=== PATIENT | male | born 1945 ===

== ENCOUNTER 2017-01-12 11:00 | Inpatient (IN) | payer MEDICARE, BC ==
--- NOTE | 2017-04-09 23:16 | HP ---
HISTORY AND PHYSICAL: DATE OF ADMISSION/SURGERY: 04/15/17. DATE OF OFFICE VISIT: 04/09/17. SURGEON: Leann Sprague MD.* (DICTATED BY DENISE IBARRA) PROCEDURE: Right total knee arthroplasty. CHIEF COMPLAINT: Right knee pain. HISTORY OF PRESENT ILLNESS: Mr. Marie is a 71-year-old gentleman with complaints of right knee pain secondary to endstage osteoarthritis. He has failed conservative management and elected to proceed with a right total knee arthroplasty, which is scheduled for 04/15/[address] Sprague. PAST MEDICAL HISTORY: Stage IV CLL, hypertension, sleep apnea, thrombocytopenia , hypothyroidism, hiatal hernia. PAST SURGICAL HISTORY: Bone marrow biopsy x2, lymph node biopsy. CURRENT MEDICATIONS: 1. Levothyroxine 200 mcg daily 2. Metoprolol 25 mg two tabs daily. ALLERGIES: None. FAMILY HISTORY: Cancer and heart disease. SOCIAL HISTORY: He is a 71-year-old gentleman, lives with his . He does not smoke, use drugs or alcohol. REVIEW OF SYSTEMS: A complete 14-point review of systems was reviewed with the patient. It is positive for sleep apnea, GERD, hypothyroidism, and thrombocytopenia. He denies a history of hepatitis C, HIV, DVT or anesthesia problems. PHYSICAL EXAMINATION GENERAL: He is well developed, well nourished, in no acute distress. VITAL SIGNS: He stands 6 feet tall, weighs 240 pounds. Her blood pressure is 140/90. Her heart rate is 80. HEENT: Normocephalic, atraumatic. NECK: Supple. No palpable lymph nodes. PULMONARY: The lungs are clear to auscultation bilaterally. CARDIO: Regular rate and rhythm. Strong S1, S2. ABDOMEN: Soft, nontender, nondistended. NEUROLOGIC: He is alert and oriented x3. Cranial nerves II through XII are intact. MUSCULOSKELETAL: Right lower extremity, the skin is intact. There are no open wounds or abrasions. He has mild effusion, tenderness over the medial and lateral joint line. No varus or valgus instability, 5/5 lower extremity strength. 2+ dorsalis pedis pulses and intact sensation. ASSESSMENT AND PLAN: Mr. Marie is a 71-year-old gentleman with complaints of right knee pain, secondary to advanced osteoarthritis. He has failed conservative management and elected to proceed with a right total knee arthroplasty which is scheduled on 04/15/[address] Sprague discussed the risks and benefits of the surgery at today's visit and all of his questions were answered. Percocet and Colace were sent to his pharmacy for postoperative pain control. He would prefer aspirin for postoperative DVT prophylaxis and that was sent to his pharmacy as well. He will follow up with Dr. Sprague in 2 weeks after the surgery. DENISE IBARRA [id number]/[facility] #: [id number] MTDD
[2017-04-14] MEDS ORDERED: Buffered Lidocaine 0.9% SYRIN* 5 ML/SYR SYRINGE INTRADERM ONE (10:24)
[2017-04-15] MEDS ORDERED: DiMENhydriNATE IV* 50 MG/ML VIAL IV PUSH PRN (05:58)
[2017-04-15] MEDS ORDERED: PROCHLORPERAZINE INJ 5 MG/ML 2 ML VIAL IV PRN (05:58)
[2017-04-15] MEDS ORDERED: Morphine INJ* 2 MG/ML 1 ML CARPUJECT IV PRN (05:58)
[2017-04-15] MEDS ORDERED: Naloxone* 0.4 MG/ML 1 ML VIAL IV PRN (05:58)
[2017-04-15] MEDS ORDERED: Scopolamine 1.5 mg* PATCH TRANSDERM PRN (05:58)
[2017-04-15] MEDS ORDERED: oxyCODONE/Acetamin 5/325 MG* TAB PO PRN ×2 (05:58→09:59)
[2017-04-15] MEDS ORDERED: Famotidine IV* 10 MG/ML 2 ML (20 mg) IV ONE (06:00)
[2017-04-15] MEDS ORDERED: Buffered Lidocaine 0.9% SYRIN* 5 ML/SYR SYRINGE ONE (06:56)
[2017-04-15] MEDS ORDERED: Famotidine IV* 10 MG/ML 2 ML (20 mg) ONE (06:56)
[2017-04-15] MEDS ORDERED: ceFAZolin 2 GM PREMIX (*) 2 GM/50 ML BAG IVPB ONE (06:56)
[2017-04-15] MEDS ORDERED: fentaNYL* 50 MCG/ML 2 ML VIAL (100 MCG VIAL) ONE ×3 (07:42→12:14)
[2017-04-15] MEDS ORDERED: Atracurium* 10 MG/ML 10 ML VIAL ONE (07:42)
[2017-04-15] MEDS ORDERED: KETAMINE HCL* 50 MG/ML 10 ML VIAL ONE (07:42)
[2017-04-15] MEDS ORDERED: Midazolam* 1 MG/ML 10 ML VIAL (10 MG) ONE (07:42)
[2017-04-15] MEDS ORDERED: Bupivacaine 0.25% SDV* 30 ML ONE (09:11)
[2017-04-15] MEDS ORDERED: Phenylephrine INJ* 10 MG/ML 1 ML VIAL (10 MG) ONE (09:11)
[2017-04-15] MEDS ORDERED: Ondansetron INJ* 2 MG/ML VIAL ONE (09:11)
[2017-04-15] MEDS ORDERED: Propofol* 10 MG/ML 20 ML BTL IV PUSH ONE (09:11)
[2017-04-15] MEDS ORDERED: Metoprolol Tartrate IV* 1 MG/ML 5 ML VIAL ONE (09:11)
[2017-04-15] MEDS ORDERED: Ketorolac INJ* 30 MG/ML 1 ML VIAL ONE (09:11)
[2017-04-15] MEDS ORDERED: Dexamethasone IV* 4 MG/ML 1 ML (4 MG) ONE (09:11)
[2017-04-15] MEDS ORDERED: Lidocaine 2% PF * 5 ML VIAL ONE (09:11)
[2017-04-15] MEDS ORDERED: Succinylcholine* 20 MG/ML 10 ML VIAL ONE (09:11)
[2017-04-15] MEDS ORDERED: EPHEDrine (Pressors)* 50 MG/ML VIAL ONE (09:16)
[2017-04-15] MEDS ORDERED: Morphine INJ* 10 MG/ML 1 ML CARPUJECT ONE (09:41)
[2017-04-15] MEDS ORDERED: hydrALAZINE IV* 20 MG/ML VIAL ONE (09:41)
[2017-04-15] MEDS ORDERED: diPHENhydraMINE IV* 50 MG/ML 1 ml VIAL (BENADRYL) IV PRN (09:59)
[2017-04-15] MEDS ORDERED: Ondansetron INJ* 2 MG/ML VIAL IV PRN (09:59)
[2017-04-15] MEDS ORDERED: Magnesium Hydroxide LIQ* 30 ML UDC PO PRN (09:59)
[2017-04-15] MEDS ORDERED: Acetaminophen TAB* 325 MG PO PRN (09:59)
[2017-04-15] MEDS ORDERED: Enoxaparin(*) 30 MG/0.3 ML SYR SUBCUT SCH (10:00)
[2017-04-15 11:16] LABS: Hematocrit 45 % (42-52); Hemoglobin 14.3 g/dl (14.0-18.0); Mean Corpuscular HGB Conc 32 g/dl (31-36); Mean Corpuscular Hemoglobin 26 pg (27-31); Mean Corpuscular Volume 81 fL (80-94); Mean Platelet Volume 10 um3 (7.4-10.4); Platelet Count 80 10^3/ul (150-450); Red Blood Count 5.52 10^6/ul (4.0-5.4); Red Cell Distribution Width 16 % (10.5-15); White Blood Count 57.9 10^3/ul (3.5-10.8)
--- NOTE | 2017-04-15 11:31 | RAD ---
INDICATION: Right total knee replacement COMPARISON: April 09, 2017 TECHNIQUE: 2 portable views were obtained. FINDINGS: There is right knee arthroplasty. The prosthetic components appear well seated. There is no overlying cooling jacket. IMPRESSION: POSTOPERATIVE RIGHT KNEE ARTHROPLASTY
[2017-04-15] MEDS ORDERED: oxyCODONE/Acetamin 5/325 MG* TAB ONE (12:10)
[2017-04-15] MEDS: fentaNYL* 50 MCG/ML 2 ML VIAL (100 MCG VIAL) IV PRN ×2 (12:15→12:23)
[2017-04-15] MEDS ORDERED: amLODIPine TAB* 5 MG PO ONE (14:37)
[2017-04-15] MEDS: oxyCODONE TAB* 5 MG TAB PO PRN ×2 (14:39→23:35)
[2017-04-15] MEDS: ceFAZolin 1 GM in Dextrose (*) 1 GM/50 ML BAG IVPB SCH (16:08)
[2017-04-15] MEDS ORDERED: Warfarin TAB(*) 6 MG PO ONE (17:00)
[2017-04-15] MEDS ORDERED: Warfarin TAB(*) 6 MG PO SCH (17:00)
[2017-04-15] MEDS: Metoprolol Tartrate TAB* 25 MG PO SCH (19:34)
[2017-04-15] MEDS: Docusate CAP* 100 MG PO SCH (19:34)
[2017-04-15] MEDS: Magnesium Hydroxide LIQ* 30 ML UDC PO SCH (19:34)
[2017-04-15] MEDS: oxyCODONE/Acetamin 5/325 MG* TAB PO PRN (21:29)
--- NOTE | 2017-04-15 23:05 | CONS ---
CC: "Dr. Esquivel" [facility]; Dr. Sprague * CONSULTATION REPORT: DATE OF ADMISSION: 04/15/17 DATE OF CONSULTATION: 04/15/17 PRIMARY CARE PROVIDER: "Dr. Esquivel" from [facility]. ATTENDING PHYSICIAN WHILE IN THE HOSPITAL: Munir Cote MD (report dictated by Nilton Nieto NP). REQUESTING PHYSICIAN IN CONSULT: Dr. Sprague. REASON FOR MEDICAL CONSULTATION: Evaluation and medical management of comorbid medical conditions. HISTORY OF PRESENT ILLNESS: I will refer you to Dr. Sprague's H and P for further details. In short, Mr. Marie is a 61-year-old male patient. He has a history of CLL, thrombocytopenia. He just did a 4-week course of Rituximab to try to increase his platelets, he finished just on 03/18/17. He also has a history of hypertension, JOHNIE, not compliant with the CPAP. He has a history of hiatal hernia, hypothyroidism, GERD, hyperlipidemia, and osteoarthritis. He was evaluated in the postoperative setting. He states that he is feeling well. He denies having any chest pain or shortness of breath. He is having some discomfort in his knee. He denies having any abdominal discomfort. Denies having any nausea, vomiting. He does not feel lightheaded. He does not feel like he is going to faint, states he is feeling pretty well. His pain is well controlled. Because of his medical complexity, we were asked to evaluate in consult. PAST MEDICAL HISTORY: Significant for: 1. CLL. 2. Hypertension. 3. JOHNIE. 4. Thrombocytopenia. 5. Hypothyroidism. 6. Hiatal hernia. 7. GERD. 8. Hyperlipidemia. 9. Osteoarthritis. PAST SURGICAL HISTORY: He has had a bone marrow biopsy and he has had lymph node biopsy, and this is his first major surgery of right total knee replacement. MEDICATIONS: His home medications according to the list provided include: 1. Metoprolol 25 mg p.o. b.i.d. 2. Synthroid 200 mcg p.o. daily. ALLERGIES: To medications include, no known drug allergies. FAMILY HISTORY: His mother had a history of AK. Father had cancer. SOCIAL HISTORY: He does not smoke, does not drink. Surrogate decision maker is his , Anne-Marie. REVIEW OF SYSTEMS: There is no documented fever. He denied having any significant weight change. There was no double vision. There is no ear discharge. He denies having any rhinorrhea. There is no sore throat. There is no thyroid enlargement. Denies having any chest pain. There is no orthopnea. He denies having any nocturnal dyspnea. There is no abdominal pain. Denies having any nausea. No vomiting. Denied any dysuria or any frequency. No loss of consciousness. Review of 14 systems was completed, all others negative. PHYSICAL EXAMINATION: Vital Signs: Blood pressure 172/78, pulse 72, respirations 18, O2 saturation 97%, temperature 98.2. General: At this time, Mr. Marie is a 71-year-old male patient. He is sitting in the PACU bed. He does not appear to be in acute distress. HEENT: Head atraumatic. Normocephalic. Eyes: EOMs intact. Sclerae anicteric, not pale. Neck was supple. Throat: Oral mucosa appears to be moist. No oropharyngeal erythema. Heart: Sounds S1, S2. Regular rate and rhythm. No murmurs, rubs, or gallops. Lungs: Clear to auscultation. No wheezes, rales or rhonchi. Abdomen: Soft , flat, nontender. Bowel sounds were hypoactive. Extremities: Pulses were 2+ through-out. He has limited range of motion to that right lower extremity as this is the operative leg. He had 5/5 strength. Neurologically, the patient is awake, alert, and oriented x3. Tongue midline. Print Developer were equal. No gross focal deficits. Skin: intact. DIAGNOSTIC STUDIES/LABORATORY DATA: Today, he had a WBC of 57.7. He had a RBC of 5.52, hemoglobin 14.3, hematocrit of 45, platelet count was 80,000. He did have a preop EKG. The preop chest x-ray from 6 days ago shows hyperinflated lung field, no active disease. No definite pneumonia. He had an EKG obtained preop same day, normal sinus rhythm, rate of 69. No ST elevations or T wave inversions. Old medical records were reviewed. ASSESSMENT AND PLAN: Mr. Marie is a 71-year-old male patient with a complex medical history coming into our orthopedic services today for an elective total knee replacement, we were asked to evaluate in consult. Recommendations at this point are: 1. Chronic lymphocytic leukemia. I defer the management to his primary oncologist, Dr. Velásquez over in [place], but at this point we will continue to follow him closely. If we need any further assistance, we could certainly touch base with our hematology/oncology group. At this point, he appears to be stable. 2. Status post right total knee replacement. I will defer the management to Dr. Sprague and her team. 3. Thrombocytopenia. Dr. Velásquez did recommend in his notes to continue with standard anticoagulation postoperatively until platelets are greater than 50,000 , so we will monitor the platelet count closely, if they do fall we will need to consider other treatment modalities, but at this point, again I would recommend enoxaparin, which has been ordered and we will follow platelet count closely. 4. Hypertension. Continue meds as prescribed. 5. Obstructive sleep apnea. He is noncompliant with his mask. I did order a 24- hour pulse oximetry. 6. Hypothyroidism. Continue Synthroid. 7. History of hiatal hernia with gastroesophageal reflux disease. He is in followup with his primary. He has recently stopped his PPI therapy, which was probably going to be started postoperatively in the outpatient setting. 8. Hyperlipidemia, follow up with primary. 9. Arthritis. We will continue with his current medical regimen. 10. DVT prophylaxis. Again, if platelet counts remain greater than 50,000 according to his records from Dr. Velásquez, he recommended continuing with the standard anticoagulation, which has been ordered already by Orthopedics. 11. Fluid, electrolytes, nutrition: He can have a regular diet. 12. Code status: Full code. TIME SPENT: Time spent on consult was 60 minutes, greater than half the time spent [id number] with the patient, obtaining my history and physical, the other half time was spent going over the plan of care with the patient and implementing plan of care. I did discuss the plan of care with my attending, Dr. Cote; he is in agreement. NILTON NIETO NP [id number]/[facility] #: [id number] MTDD
[2017-04-16] MEDS: ceFAZolin 1 GM in Dextrose (*) 1 GM/50 ML BAG IVPB SCH ×2 (00:24→08:10)
--- NOTE | 2017-04-16 01:56 | OP ---
DATE OF OPERATION: 04/15/17 - ROOM #342 DATE OF : 49 SURGEON: Leann Sprague MD POLLUTION CONTROL CHEMIST: DENISE Macdonald. Ms. Garcias did help throughout the procedure with preparation of the leg, wound retraction, manipulation of the knee, and wound closure. ANESTHESIOLOGIST: Dr. Suggs. ANESTHESIA: General with adductor nerve block. PRE-OP DIAGNOSIS: Severe end-stage arthritis of the right knee joint. POST-OP DIAGNOSIS: Severe end-stage arthritis of the right knee joint. OPERATIVE PROCEDURE: Right total knee arthroplasty. TOURNIQUET TIME: 48 minutes. COMPLICATIONS: None. ESTIMATED BLOOD LOSS: 200 cc. SPECIMENS: Bone and cartilage sent from the right knee joint to Pathology. HARDWARE USED: This is a cemented [employer]ill [employer] total knee arthroplasty hardware. Two packages of Simplex bone cement were used. For the femur, a size 6 right Legion posterior stabilized femoral component. For the tibia, a size 6 right Chrissy II tibial baseplate. For the insert, an 11-mm posterior stabilized articular insert. For the patella, a 35-mm 3-peg all poly patella. BRIEF HISTORY/INDICATIONS: Mr. Marie is a 71-year-old gentleman with years of increasingly severe right knee pain. The patient failed conservative treatment with the anti-inflammatories, pain medications, intraarticular injections, and physical therapy. Radiographs showed severe end-stage arthritis. Due to continued pain and decreased quality of life, the patient elected to proceed with right total knee arthroplasty. Informed consent was obtained from the patient. He understood the risks of the procedure, included but were not limited to bleeding, infection, damage to nearby structures, continued pain, need for further surgery, intraoperative fracture, nerve palsy, hardware failure or loosening, knee stiffness, loss of motion, stroke, heart attack, blood clot, and . He wished to proceed. INTRAOPERATIVE FINDINGS: Intraoperatively, the patient was noted to have severe loss of cartilage in the lateral and patellofemoral compartments. DESCRIPTION OF PROCEDURE: Mr. Marie was identified in the preanesthesia unit. His right lower extremity was marked as the correct operative site. Informed consent was signed and placed in the chart. The patient was taken to the operating room and placed under general anesthesia with an adductor nerve block. A Avitia catheter was placed. Tourniquet was placed on the right thigh. The right lower extremity was prepped and draped in the usual sterile fashion. Preop time-out was made to correctly identify the patient, side, and site. Appropriate perioperative antibiotics were given within 1 hour of incision. Tourniquet was inflated and total tourniquet time for this procedure was 48 minutes. A 12-cm midline incision was made with a 10 blade and carried down to the extensor mechanism. New 10 blade was used to make a standard medial parapatellar arthrotomy. The patella was subluxed laterally. Electrocautery was used to subperiosteally elevate soft tissue off the superomedial tibia to the mid sagittal plane. The knee was flexed up. Anterior horn of the lateral meniscus and the ACL were sharply released. A drill was used to enter the distal femur. Intramedullary distal femoral cutting guide was pinned on the distal femur. Oscillating saw was used to make the appropriate distal femoral cut. There was lateral femoral condylar hypoplasia, this was noted and accounted for. Next, the external rotation guide was pinned on the distal femur. The distal femur was sized to a size 6. Size 6 multi-cutting jig was pinned on the distal femur. The oscillating saw was used to make the appropriate 4 chamfer cuts. The PCL was completely released with electrocautery. The tibia was subluxed anteriorly. Extramedullary tibial cutting guide was pinned on the proximal tibia. Oscillating saw was used to make the proximal tibial cut perpendicular to the mechanical axis of the tibia. The bone was carefully removed. The knee was brought out into full extension. Medial and lateral ligaments were well balanced. The spacer block had good fit with the knee in full extension. Flexion and extension gaps were well balanced. The knee was flexed up. Lamina student liaison officer was placed both medially and laterally. Any remaining meniscus was carefully removed using electrocautery. Curved osteotome was used to remove posterior osteophytes. Tibial tray and drop raquel were placed and once again confirmed a satisfactory tibial cut. A right size 6 femoral trial was impacted on to the distal femur. This had excellent fit. The box for the posterior stabilized implant was prepared using a reamer and box cut osteotome. Size 6 tibial tray trial and an 11-mm insert trial were placed and the knee was taken through a range of motion. The knee had full extension to 130 degrees of flexion with good patellofemoral tracking. The patella was everted. A 9-mm of patellar bone and cartilage was carefully removed using an oscillating saw. The patella was sized to a size 35. Three peg holes were drilled through the size 35 guide. A trial 35 patella was placed and the knee was taken through a range of motion. There was satisfactory patellofemoral tracking. All trials were carefully removed. The tibia was subluxed anteriorly and sized to a size 6. Proximal tibia was prepared using a size-6 keel punch. All bony cut surfaces were copiously irrigated with sterile saline and dried. Final implants were cemented into place, starting with the tibia, followed by the femur, and last the patella. An 11-mm insert trial was placed while the knee was brought out into full extension. Tourniquet was turned down at 48 minutes. The knee was copiously irrigated with sterile saline. Electrocautery was used to obtain meticulous hemostasis. Once the cement had fully cured, the insert trial was removed. Any excess cement was removed from around the capsule and hardware. Final insert chosen was an 11-mm posterior stabilized articular insert size 5/6. This was locked into position on the tibial tray. Stability of the insert was checked and rechecked and noted to be stable. The extensor mechanism was closed using interrupted #1 Vicryls. The rest of the incision was closed in a layered fashion using 0 and 2-0 Vicryls. Skin was closed using running 3-0 nylon suture. Sterile Xeroform, 4x4s, and Webril were used to cover the incision. Onofre wrap and cold packs were placed over this. The patient's anesthesia was reversed without difficulty. He was taken to the PACU in stable condition. Intended weightbearing will be weightbearing as tolerated. Intended DVT prophylaxis will be Coumadin with a Lovenox bridge. [id number]/[facility] #: [id number] ELMA
[2017-04-16] MEDS: oxyCODONE/Acetamin 5/325 MG* TAB PO PRN ×2 (06:14→12:03)
[2017-04-16 06:28] LABS: EGFR Non-African American 84.8 (>60)
[2017-04-16 06:41] LABS: Hematocrit 42 % (42-52); Mean Corpuscular HGB Conc 31 g/dl (31-36); Mean Corpuscular Hemoglobin 26 pg (27-31); Mean Corpuscular Volume 82 fL (80-94); Mean Platelet Volume 10 um3 (7.4-10.4); Platelet Count 96 10^3/ul (150-450); Red Blood Count 5.08 10^6/ul (4.0-5.4); Red Cell Distribution Width 16 % (10.5-15); White Blood Count 70.9 10^3/ul (3.5-10.8)
[2017-04-16 06:42] LABS: ABS Basophils 0.2 10^3/ul (0-0.2); ABS Eosinophils 0.2 10^3/ul (0-0.6); ABS Lymphocytes 55.8 10^3/ul (1.0-4.8); ABS Monocytes 1.6 10^3/ul (0-0.8); ABS Neutrophils 13.1 10^3/ul (1.5-7.7); ABS Nucleated RBC 0 10^3/ul; Eosinophil % 0.3 % (0-6); Lymphocyte % 78.7 % (25-47); Nucleated Red Blood Cells % 0.1
[2017-04-16 06:43] LABS: INR 1.04 (0.77-1.02)
[2017-04-16 07:14] LABS: Monocytes % 0 % (0-13)
[2017-04-16] MEDS: Levothyroxine TAB* 100 MCG TAB PO SCH (07:34)
[2017-04-16] MEDS: oxyCODONE TAB* 5 MG TAB PO PRN ×2 (08:10→20:19)
[2017-04-16] MEDS ORDERED: Famotidine TAB* 20 MG ONE (08:41)
[2017-04-16] MEDS: Vitamin THERAPEUTIC TAB PO SCH (08:42)
[2017-04-16] MEDS: amLODIPine TAB* 5 MG PO SCH (08:42)
[2017-04-16] MEDS: Metoprolol Tartrate TAB* 25 MG PO SCH ×2 (08:42→20:20)
--- NOTE | 2017-04-16 08:42 | PN ---
Progress Note - Progress Note Date of Service: 04/16/17 SOAP: Subjective: 71 y/o male s/p R TKA 04/[address] Sprague, uncomplicated. Patient states pain better controlled, no questions re: surgery. VSS afebrile overnight. Objective: General- Well appearing, NAD, OA, sitting in chair comfortably MSK- Dressing intact, no draiange noted, + DF/PF b/l, SITLT b/l grossly, PT 2+ R Vital Signs Temp 98.0 F 04/16/17 07:32 Pulse 80 04/16/17 07:32 Resp 18 04/16/17 12:03 BP 151/70 04/16/17 07:32 Pulse Ox 95 04/16/17 08:00 Intake & Output 04/15/17 04/16/17 04/16/17 18:59 06:59 18:59 Intake Total 2530 1929 Output Total 1150 1600 0 Balance 1380 329 0 Intake: IV Fluids 2300 989 LR 2300 989 Oral 230 940 Output: Urine 200 0 Avitia 850 1400 Estimated Blood Loss 300 Assessment: STable 71 y/o male s/p R TKA 04/[address] Sprague, uncomplicated. Plan: - DVT prophylaxis- h/o CLL, plts 96 today, continue anticoag. lovenox in house , ASA 325 BID at home - multiple medical co-morbidities, hosp consulted/ following - Continue PT - POssible D/C tomorrow, Patient declined home nursing/ PT. Active Medications Generic Name Dose Route Start Last Admin Trade Name Freq PRN Reason Stop Dose Admin Acetaminophen 650 mg 04/15/17 09:59 Tylenol Tab* PO Q4H PRN PAIN OR TEMPERATURE Amlodipine Besylate 10 mg 04/16/17 09:00 04/16/17 08:42 Norvasc Tab* PO 10 mg DAILY YUDITH Administration Diphenhydramine HCl 25 mg 04/15/17 09:59 Benadryl Iv* IV Q6H PRN itching Docusate Sodium 100 mg 04/15/17 21:00 04/16/17 08:43 Colace Cap* PO 100 mg BID YUDITH Administration Enoxaparin Sodium 30 mg 04/16/17 12:00 04/16/17 12:04 Lovenox(*) SUBCUT 30 mg Q24H YUDITH Administration Famotidine 20 mg 04/16/17 09:00 04/16/17 08:45 Pepcid Tab* PO Not Given BID YUDITH Lactated Ringer's 1,000 mls @ 75 mls/hr 04/15/17 10:00 04/15/17 13:36 Lactated Ringers 1000 Ml Bag* IV 75 mls/hr PER RATE YUDITH Administration Levothyroxine Sodium 200 mcg 04/16/17 09:00 04/16/17 07:34 Synthroid Tab* PO 200 mcg DAILY YUDITH Administration Magnesium Hydroxide 30 ml 04/15/17 21:00 04/16/17 08:43 Milk Of Magnesia Liq* PO 30 ml BID YUDITH Administration Magnesium Hydroxide 30 ml 04/15/17 09:59 Milk Of Magnesia Liq* PO Q6H PRN constipation Metoprolol Tartrate 25 mg 04/15/17 21:00 04/16/17 08:42 Lopressor Tab* PO 25 mg BID YUDITH Administration Multivitamins 1 tab 04/16/17 09:00 04/16/17 08:42 Theragran Tab* PO 1 tab DAILY YUDITH Administration Ondansetron HCl 4 mg 04/15/17 09:59 04/16/17 02:44 Zofran Inj* IV 4 mg Q6H PRN Administration nausea Oxycodone HCl 10 mg 04/15/17 09:59 04/16/17 08:10 Roxycodone Tab* PO 10 mg Q4H PRN Administration PAIN - SEVERE Oxycodone/Acetaminophen 2 tab 04/15/17 09:59 04/16/17 12:03 Percocet 5/325 Tab* PO 2 tab Q4H PRN Administration PAIN Oxycodone/Acetaminophen 1 tab 04/15/17 09:59 Percocet 5/325 Tab* PO Q4H PRN PAIN Pharmacy Profile Note 1 note 04/18/17 05:59 Scopolamine Patch Remove* PATCH OFF 04/18/17 06:00 Q72H ONE
[2017-04-16] MEDS: Magnesium Hydroxide LIQ* 30 ML UDC PO SCH ×2 (08:43→20:20)
[2017-04-16] MEDS: Docusate CAP* 100 MG PO SCH ×2 (08:43→20:20)
[2017-04-16] MEDS: Famotidine TAB* 20 MG PO SCH ×2 (08:45→20:20)
[2017-04-16] MEDS: Enoxaparin(*) 30 MG/0.3 ML SYR SUBCUT SCH (12:04)
--- NOTE | 2017-04-16 15:58 | PN ---
Subjective Date of Service: 04/16/17 Interval History: Pain control OK. Walked a little today. He anticipates going home tomorrow. Objective Active Medications: Acetaminophen (Tylenol Tab*) 650 mg PO Q4H PRN PRN Reason: PAIN OR TEMPERATURE Amlodipine Besylate (Norvasc Tab*) 10 mg PO DAILY [facility] Last Admin: 04/16/17 08:42 Dose: 10 mg Diphenhydramine HCl (Benadryl Iv*) 25 mg IV Q6H PRN PRN Reason: itching Docusate Sodium (Colace Cap*) 100 mg PO BID [facility] Last Admin: 04/16/17 08:43 Dose: 100 mg Enoxaparin Sodium (Lovenox(*)) 30 mg SUBCUT Q24H [facility] Last Admin: 04/16/17 12:04 Dose: 30 mg Famotidine (Pepcid Tab*) 20 mg PO BID [facility] Last Admin: 04/16/17 08:45 Dose: Not Given Lactated Ringer's (Lactated Ringers 1000 Ml Bag*) 1,000 mls @ 75 mls/hr IV PER RATE [facility] Last Admin: 04/15/17 13:36 Dose: 75 mls/hr Levothyroxine Sodium (Synthroid Tab*) 200 mcg PO DAILY [facility] Last Admin: 04/16/17 07:34 Dose: 200 mcg Magnesium Hydroxide (Milk Of Magnesia Liq*) 30 ml PO BID [facility] Last Admin: 04/16/17 08:43 Dose: 30 ml Magnesium Hydroxide (Milk Of Magnesia Liq*) 30 ml PO Q6H PRN PRN Reason: constipation Metoprolol Tartrate (Lopressor Tab*) 25 mg PO BID [facility] Last Admin: 04/16/17 08:42 Dose: 25 mg Multivitamins (Theragran Tab*) 1 tab PO DAILY [facility] Last Admin: 04/16/17 08:42 Dose: 1 tab Ondansetron HCl (Zofran Inj*) 4 mg IV Q6H PRN PRN Reason: nausea Last Admin: 04/16/17 02:44 Dose: 4 mg Oxycodone HCl (Roxycodone Tab*) 10 mg PO Q4H PRN PRN Reason: PAIN - SEVERE Last Admin: 04/16/17 08:10 Dose: 10 mg Oxycodone/Acetaminophen (Percocet 5/325 Tab*) 2 tab PO Q4H PRN PRN Reason: PAIN Last Admin: 04/16/17 12:03 Dose: 2 tab Oxycodone/Acetaminophen (Percocet 5/325 Tab*) 1 tab PO Q4H PRN PRN Reason: PAIN Pharmacy Profile Note (Scopolamine Patch Remove*) 1 note PATCH OFF Q72H ONE Stop: 04/18/17 06:00 Vital Signs - 8 hr 04/16/17 04/16/17 04/16/17 08:00 08:10 10:00 Temperature Pulse Rate Respiratory 18 18 18 Rate Blood Pressure (mmHg) O2 Sat by Pulse 95 Oximetry 04/16/17 04/16/17 04/16/17 10:07 11:26 12:00 Temperature 98.1 F Pulse Rate 68 Respiratory 18 18 18 Rate Blood Pressure 157/73 (mmHg) O2 Sat by Pulse 99 Oximetry 04/16/17 04/16/17 04/16/17 12:03 14:00 14:10 Temperature Pulse Rate Respiratory 18 18 18 Rate Blood Pressure (mmHg) O2 Sat by Pulse Oximetry Oxygen Devices in Use Now: None Appearance: Alert, partly up in bed. In good spirits. Looks comfortable. Eyes: No Scleral Icterus Extremities: No Edema, No Clubbing, Cyanosis, - - R knee in immoblizer. Skin: No Rash or Ulcers, No Nodules or Sclerosis, - Neurological: Alert and Oriented x 3, NL Sensation Result Diagrams: 04/16/17 05:51 04/16/17 05:51 Assess/Plan/Problems-Billing Assessment: - Patient Problems (1) HTN (hypertension) Current Visit: Yes Status: Acute Code(s): I10 - ESSENTIAL (PRIMARY) HYPERTENSION SNOMED Code(s): 02828872 Comment: Amlodipine has been added to his other meds, would continue as outpt until fup with his PCP. (2) CLL (chronic lymphocytic leukemia) Current Visit: Yes Status: Acute Code(s): C91.10 - CHRONIC LYMPHOCYTIC LEUK OF B-CELL TYPE NOT ACHIEVE REMIS SNOMED Code(s): 12306732 Comment: Followed by supervisor water treatment plant in [place]. Stable, no intervention needed at this time. (3) Hypothyroid Current Visit: Yes Status: Acute Code(s): E03.9 - HYPOTHYROIDISM, UNSPECIFIED SNOMED Code(s): 29022403 Comment: Add on TSH requested. (4) S/P total knee arthroplasty Current Visit: Yes Status: Acute Code(s): Z96.659 - PRESENCE OF UNSPECIFIED ARTIFICIAL KNEE JOINT SNOMED Code(s): 0617767951889 Comment: Surgery 04/15/17. Anticoagulation per Dr. Sprague.
[2017-04-16] MEDS ORDERED: Warfarin TAB(*) 4 MG PO ONE (17:00)
[2017-04-17] MEDS: oxyCODONE TAB* 5 MG TAB PO PRN (04:20)
[2017-04-17 05:45] LABS: Hematocrit 39 % (42-52); Hemoglobin 12.4 g/dl (14.0-18.0); Mean Corpuscular HGB Conc 32 g/dl (31-36); Mean Corpuscular Hemoglobin 26 pg (27-31); Mean Corpuscular Volume 80 fL (80-94); Mean Platelet Volume 9 um3 (7.4-10.4); Platelet Count 80 10^3/ul (150-450); Red Blood Count 4.81 10^6/ul (4.0-5.4); Red Cell Distribution Width 16 % (10.5-15); White Blood Count 47.2 10^3/ul (3.5-10.8)
[2017-04-17] MEDS: Magnesium Hydroxide LIQ* 30 ML UDC PO SCH (08:04)
[2017-04-17] MEDS: oxyCODONE/Acetamin 5/325 MG* TAB PO PRN ×2 (08:05→12:01)
[2017-04-17 08:21] VITALS: BP 151/66
--- NOTE | 2017-04-17 08:39 | PN ---
Progress Note - Progress Note Date of Service: 04/17/17 SOAP: Subjective: Pt. is alert, nad, wants to go home today. Objective: Vital Signs: Temp Pulse Resp BP Pulse Ox 98.5 F 85 18 151/66 97 04/17/17 07:48 04/17/17 07:48 04/17/17 08:05 04/17/17 07:48 04/17/17 08:00 Laboratory Results - last 24 hr 04/16/17 04/16/17 04/17/17 05:51 05:51 05:32 WBC 47.2 H RBC 4.81 Hgb 12.4 L Hct 39 L MCV 80 MCH 26 L MCHC 32 RDW 16 H Plt Count 80 L MPV 9 Hem Pathologist Commnt Sodium 133 Potassium 4.6 Chloride 98 L Carbon Dioxide 29 Anion Gap 6 BUN 13 Creatinine 0.89 Est GFR ( Amer) 109.0 Est GFR (Non-Af Amer) 84.8 BUN/Creatinine Ratio 14.6 Glucose 172 H Calcium 8.8 TSH 0.79 RLE - dressing changed, inc c/d/i. distally nvi. min effusion. min edema distally. Assessment: 71 yo pod 2 s/p RTKA Plan: wbat rle pt/ot lovenox today - home on 325 mg ecasa bid d/c to home today
[2017-04-17] MEDS: Metoprolol Tartrate TAB* 25 MG PO SCH (09:10)
[2017-04-17] MEDS: Vitamin THERAPEUTIC TAB PO SCH (09:10)
[2017-04-17] MEDS: Famotidine TAB* 20 MG PO SCH (09:10)
[2017-04-17] MEDS: amLODIPine TAB* 5 MG PO SCH (09:10)
[2017-04-17] MEDS: Docusate CAP* 100 MG PO SCH (09:11)
[2017-04-17] MEDS: Levothyroxine TAB* 100 MCG TAB PO SCH (10:09)
[2017-04-17] MEDS: Enoxaparin(*) 30 MG/0.3 ML SYR SUBCUT SCH (12:01)
--- NOTE | 2017-04-17 20:00 | DS ---
AMENDED REPORT NOW INCLUDES COSIGNER DESIGNATION - ESIGNED BEFORE ADJUSTMENT DISCHARGE SUMMARY: DATE OF ADMISSION: 04/15/17 DATE OF DISCHARGE: 04/17/17 PROVIDER: Leann Sprague MD * (DICTATED BY DENISE SOSA) ADMITTING DIAGNOSIS: Severe end-stage osteoarthritis of the right knee. DISCHARGE DIAGNOSIS: Severe end-stage osteoarthritis of the right knee, status post right total knee arthroplasty. SECONDARY DIAGNOSES: 1. Hypertension. 2. Hypothyroidism. HISTORY OF PRESENT ILLNESS: Mr. Marie is a 71-year-old gentleman who has had ongoing complaints of right knee pain secondary to end-stage osteoarthritis. He failed conservative management and elected to proceed with a right total knee arthroplasty. HOSPITAL COURSE: On 04/15/17, the patient was admitted to [facility] and underwent a successful right total knee arthroplasty by Dr. Sprague. He recovered briefly in the postanesthesia care unit and was transferred to the short- stay surgical unit in stable condition. The patient's pain was well controlled with oral pain medication on postop day 1. He was able to ambulate a short distance with the use of a rolling walker. His Avitia was removed and he was able to void on his own. He had mild acute blood loss anemia on postop day 1 with an H and H of 13.0 and 42. INR was 1.04 with 6 mg of Coumadin previously. On postop day 2, the patient was able to participate further in physical therapy and again had a stable acute blood loss anemia with an H and H of 12.4 and 39. Pain was well controlled with oral pain medication and he was found stable for discharge home. Throughout the hospital course, the patient was slightly hypertensive and hospitalist added amlodipine to his regular dose of metoprolol. They advised him to continue on that upon discharge. DISCHARGE CONDITION: Stable. DISCHARGE MEDICATIONS: The patient will have: 1. Percocet 5/325 one to two tabs p.o. q.4 to 6 hours p.r.n. pain. 2. Aspirin 325 mg p.o. b.i.d. for DVT prophylaxis. 3. Docusate 100 mg p.o. b.i.d. p.r.n. constipation. 4. He will have amlodipine 10 mg p.o. daily. 5. He will continue his metoprolol tartrate 25 mg p.o. b.i.d. 6. Levothyroxine 200 mcg p.o. daily. FOLLOWUP: The patient will follow up in the office at a scheduled appointment 10 to [address] Sprague. DISCHARGE INSTRUCTIONS: He will be weightbearing as tolerated with the use of a rolling walker. He will go directly to outpatient physical therapy home visiting nurse service. He will keep his incision clean and dry until postop day 4. At that point, he may shower normally and wash the wound with soap and water. He is advised to apply dry dressing as needed and also advised to avoid submerging the incision in the bath tub, hot tub or swimming pool until sutures are removed. He is understanding to call the office with any questions or concerns. He will go directly to the emergency room with any chest pain, shortness of breath, fever greater than 101.5, calf pain or swelling. DENISE SOSA [id number]/[facility] #: [id number] [place]
[2017-04-18] MEDS ORDERED: Scopolamine PATCH Remove* 1 NOTE MISC PATCH OFF ONE (05:59)
== END 2017-04-17 13:40 | disposition home or self-care (01) | DRG 470 ==
LOC: AA 04-15 06:20 → SSU 04-15 13:09
PROVIDERS: ADMIT Orthopaedic Surgery Adult Reconstructive Orthopaedic Surgery; ATTEND Internal Medicine
PROC: 0SRC0J9 Replacement of Right Knee Joint with Synthetic Substitute, Cemented, Open Approach (ICD-10-PCS; principal; 2017-04-15 08:00)
DX: M17.11 Unilateral primary osteoarthritis, right knee (principal); C91.10 Chronic lymphocytic leukemia of B-cell type not having achieved remission; D69.6 Thrombocytopenia, unspecified; D62 Acute posthemorrhagic anemia; E03.9 Hypothyroidism, unspecified; I10 Essential (primary) hypertension; K44.9 Diaphragmatic hernia without obstruction or gangrene; K21.9 Gastro-esophageal reflux disease without esophagitis; G47.33 Obstructive sleep apnea (adult) (pediatric); E78.5 Hyperlipidemia, unspecified; E66.9 Obesity, unspecified; M25.761 Osteophyte, right knee; Z79.82 Long term (current) use of aspirin; Z82.49 Family history of ischemic heart disease and other diseases of the circulatory system; Z80.9 Family history of malignant neoplasm, unspecified; Z92.21 Personal history of antineoplastic chemotherapy; Z68.36 Body mass index [BMI] 36.0-36.9, adult
CPT/HCPCS: 36415; 80048; 84443; 85025; 85027; 85060; 85610; 86308; A9270-GY; C1776; J0330; J0360; J0690; J1100; J1650; J1885; J2250; J2270; J2405; J2704; J3010; J3490